=== PATIENT | female | born 1960 | race Caucasian/White ===

== ENCOUNTER 2017-09-27 16:58 | Emergency (ER) | payer BC ==
[~2017-09-27] VITALS: Ht 175.3 cm; Wt 77.1 kg
[~2017-09-27 16:58] MED LIST changes: -CYCL10TA6 PO; -IBUP600T44 PO
[2017-09-27 17:03] VITALS: Ht 175.3 cm; Wt 77.1 kg
[2017-09-27] MEDS ORDERED: DiphenhydrAMINE HCL 50 MG/ML VIAL IV STA (17:19)
[2017-09-27] MEDS ORDERED: KETOROLAC TROMETHAMINE 30 MG/ML VIAL IV STA (17:19)
[2017-09-27] MEDS ORDERED: SODIUM CHLORIDE 0.9% 500ML 500 ML IV STA (17:19)
[2017-09-27] MEDS ORDERED: PROCHLORPERAZINE 5 MG/ML 2 ML VIAL IV STA (17:19)
[2017-09-27] MEDS ORDERED: OPTIRAY 320 IV PRN (17:30)
--- NOTE | 2017-09-27 17:33 | EMERGENCY ROOM VISIT NOTE ---
History Report prepared by Malathi: Philip Ham Under the Supervision of: Dr. Hunter Ruiz D.O. First contact with patient: 17:10 Chief Complaint: HEADACHE Stated Complaint: SEVERE HEADACHE;DOC REFERRED History of Present Illness The patient is a 57 year old female who presents to the Emergency Room with complaints of a worsening headache that began on Monday morning, 4 days prior to arrival. The patient states that her symptoms began with a headache on Monday morning that worsened to intense "throbbing" over the right side of her head and down the right side of her neck. The patient rates the throbbing as a 9/10 in severity. She also notes a "stabbing" pain in her right ear. These symptoms are only alleviated by sleeping. She denies any associated fevers. The patient visited with her PCP on Monday and was given Motrin and Flexeril. This did not alleviate her symptoms so she went back to the PCP today. Today she had a neck x-ray and a carotid ultra sound performed. The Carotid US was clean, but the PCP called her and told her she needed to come to the Emergency Department. She denies any current numbness/weakness, but is nauseous. The patient mentioned that she has had a slight tremor in her upper extremities since she had lumbar back surgery this past April. She adds that this tremor is worse at this time. Pt denies headache, change in vision, fevers, chest pain, shortness of breath, diarrhea, pain with urination, and melena. 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 A total of 10 systems reviewed and were otherwise negative. Past Medical & Surgical No past medical/surgical histories noted. Family History Cancer Diabetes mellitus FH: heart disease Hypertension Seizures Social History Smoking Status: Current Every Day Smoker Marital Status: Occupation Status: employed Current/Historical Medications Scheduled Cyclobenzaprine Hcl (Flexeril), 10 MG PO TID Pantoprazole (Protonix), 40 MG PO BID Paroxetine (Paxil), 30 MG PO DAILY Scheduled PRN Ibuprofen (Motrin), 600 MG PO TID PRN for Pain Allergies Coded Allergies: Lansoprazole (Verified Allergy, Unknown, ?, 08/28/09) Omeprazole (Verified Adverse Reaction, Mild, DIARRHEA, 08/28/09) Physical Exam Vital Signs Date Time Temp Pulse Resp B/P (MAP) Pulse Ox O2 Delivery O2 Flow Rate FiO2 09/27/17 22:20 69 18 111/57 94 09/27/17 21:31 66 18 122/81 92 Room Air 09/27/17 20:31 74 18 117/70 94 Room Air 09/27/17 18:31 75 18 113/70 97 Room Air 09/27/17 17:03 36.7 89 18 115/81 98 Room Air Physical Exam GENERAL: Sitting up in bed, alert, well appearing, well nourished, no distress, non-toxic EYE EXAM: normal conjunctiva. PERRL and EOM's intact. OROPHARYNX: no exudate, no erythema, lips, buccal mucosa, and tongue normal and mucous membranes are moist HEAD: Acute reproducible tenderness just right of the OA joint, tracking down the right paraspinal musculature into the right trapezius. NECK: supple, no nuchal rigidity, no adenopathy, non-tender LUNGS: Clear to auscultation. Normal chest wall mechanics HEART: no murmurs, S1 normal and S2 normal ABDOMEN: abdomen soft, non-tender, normo-active bowel sounds, no masses, no rebound or guarding. BACK: Back is symmetrical on inspection and there is no deformity, no midline tenderness, no CVA tenderness. SKIN: no rashes and no bruising UPPER EXTREMITIES: upper extremities are grossly normal. LOWER EXTREMITIES: No pitting edema. NEURO EXAM: Normal sensorium, cranial nerves II-XII intact, normal speech, no weakness of arms, no weakness of legs. No drift. Finger to nose intact. Gross sensation intact. Medical Decision & Procedures ER Provider Diagnostic Interpretation: Radiology results as stated below per my review and the radiologist's interpretation: ANGIOGRAPHY HEAD COMBO, NECK ANGIO WITH CONTRAST CLINICAL HISTORY: 57 years-old Female presenting with severe right-sided head and neck pain. TECHNIQUE: Multidetector CT angiography of the head and neck was performed before and after the administration of intravenous contrast. 3-D volumetric and/or maximum intensity projection (MIP) images were subsequently reconstructed for review. IV contrast: 95 mL of Optiray 320. A dose lowering technique was used consistent with the principles of ALARA (as low as reasonably achievable). Stenosis measurements were based on NASCET-like criteria. COMPARISON: Noncontrast CT head from 06/04/2009. CT DOSE (mGy.cm): The estimated cumulative dose is 1195.93. FINDINGS: Naphthalene Operator Helper topogram: Unremarkable. NONCONTRAST CT HEAD: Ventricles and sulci normal in size. Brain parenchyma normal in appearance with preserved young-white differentiation. No mass effect or midline shift. No hemorrhage or acute territorial infarct. No extra-axial fluid collection. Paranasal sinuses and mastoid air cells clear. Calvarium intact. CTA HEAD: Anterior circulation demonstrates patent intracranial portions of the internal carotid arteries. Bulbous 3 mm superiorly directed paraclinoid aneurysm noted arising from the right ICA (series 5 image 44). Anterior and middle cerebral arteries patent. Anterior communicating artery patent. Posterior circulation demonstrates codominant vertebral arteries. Posterior inferior cerebellar, anterior inferior cerebellar, superior cerebellar, and posterior cerebral arteries patent. Posterior communicating arteries hypoplastic or aplastic. Dural venous sinuses patent. CTA NECK: Three-vessel aortic arch with patent origins. Common and internal carotid arteries patent. Slight aneurysmal dilatation of the proximal right vertebral artery, which measures 6 mm in diameter versus the normal distal diameter of 2 mm. IMPRESSION: 1. No acute intracranial abnormality. 2. 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 3. No dissection, focal occlusion, or significant stenosis of the cervical arteries. Electronically signed by: Shabbir Jaeger M.D. 09/27/2017 6:32 PM Dictated Date/Time: 09/27/2017 6:24 PM ANGIOGRAPHY HEAD COMBO, NECK ANGIO WITH CONTRAST CLINICAL HISTORY: 57 years-old Female presenting with severe right-sided head and neck pain. TECHNIQUE: Multidetector CT angiography of the head and neck was performed before and after the administration of intravenous contrast. 3-D volumetric and/or maximum intensity projection (MIP) images were subsequently reconstructed for review. IV contrast: 95 mL of Optiray 320. A dose lowering technique was used consistent with the principles of ALARA (as low as reasonably achievable). Stenosis measurements were based on NASCET-like criteria. COMPARISON: Noncontrast CT head from 06/04/2009. CT DOSE (mGy.cm): The estimated cumulative dose is 1195.93. FINDINGS: Naphthalene Operator Helper topogram: Unremarkable. NONCONTRAST CT HEAD: Ventricles and sulci normal in size. Brain parenchyma normal in appearance with preserved young-white differentiation. No mass effect or midline shift. No hemorrhage or acute territorial infarct. No extra-axial fluid collection. Paranasal sinuses and mastoid air cells clear. Calvarium intact. CTA HEAD: Anterior circulation demonstrates patent intracranial portions of the internal carotid arteries. Bulbous 3 mm superiorly directed paraclinoid aneurysm noted arising from the right ICA (series 5 image 44). Anterior and middle cerebral arteries patent. Anterior communicating artery patent. Posterior circulation demonstrates codominant vertebral arteries. Posterior inferior cerebellar, anterior inferior cerebellar, superior cerebellar, and posterior cerebral arteries patent. Posterior communicating arteries hypoplastic or aplastic. Dural venous sinuses patent. CTA NECK: Three-vessel aortic arch with patent origins. Common and internal carotid arteries patent. Slight aneurysmal dilatation of the proximal right vertebral artery, which measures 6 mm in diameter versus the normal distal diameter of 2 mm. IMPRESSION: 1. No acute intracranial abnormality. 2. 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 3. No dissection, focal occlusion, or significant stenosis of the cervical arteries. Electronically signed by: Shabbir Jaeger M.D. 09/27/2017 6:32 PM Dictated Date/Time: 09/27/2017 6:24 PM Laboratory Results 09/27/17 17:30 Red Blood Count 5.14, Mean Corpuscular Volume 95.5, Mean Corpuscular Hemoglobin 33.5, Mean Corpuscular Hemoglobin Concent 35.0, Mean Platelet Volume 10.4, Neutrophils (%) (Auto) 61.3, Lymphocytes (%) (Auto) 30.7, Monocytes (%) (Auto) 5.5, Eosinophils (%) (Auto) 1.4, Basophils (%) (Auto) 0.7, Neutrophils # (Auto) 4.26, Lymphocytes # (Auto) 2.14, Monocytes # (Auto) 0.38, Eosinophils # (Auto) 0.10, Basophils # (Auto) 0.05 09/27/17 17:30 Test 09/27/17 17:30 White Blood Count 6.96 K/uL (4.8-10.8) Red Blood Count 5.14 M/uL (4.2-5.4) Hemoglobin 17.2 g/dL (12.0-16.0) Hematocrit 49.1 % (37-47) Mean Corpuscular Volume 95.5 fL (80-100) Mean Corpuscular Hemoglobin 33.5 pg (25-34) Mean Corpuscular Hemoglobin Concent 35.0 g/dl (32-36) Platelet Count 217 K/uL (130-400) Mean Platelet Volume 10.4 fL (7.4-10.4) Neutrophils (%) (Auto) 61.3 % Lymphocytes (%) (Auto) 30.7 % Monocytes (%) (Auto) 5.5 % Eosinophils (%) (Auto) 1.4 % Basophils (%) (Auto) 0.7 % Neutrophils # (Auto) 4.26 K/uL (1.4-6.5) Lymphocytes # (Auto) 2.14 K/uL (1.2-3.4) Monocytes # (Auto) 0.38 K/uL (0.11-0.59) Eosinophils # (Auto) 0.10 K/uL (0-0.5) Basophils # (Auto) 0.05 K/uL (0-0.2) RDW Standard Deviation 44.2 fL (36.4-46.3) RDW Coefficient of Variation 12.7 % (11.5-14.5) Immature Granulocyte % (Auto) 0.4 % Immature Granulocyte # (Auto) 0.03 K/uL (0.00-0.02) Anion Gap 6.0 mmol/L (3-11) Est Creatinine Clear Calc Drug Dose 65.2 ml/min Estimated GFR () 71.7 Estimated GFR (Non- 61.9 BUN/Creatinine Ratio 11.8 (10-20) Calcium Level 9.8 mg/dl (8.5-10.1) Laboratory results per my review. Medications Administered Medications (Trade) Dose Ordered Sig/Sarkis Route Start Time Stop Time Status Last Admin Dose Admin Diphenhydramine HCl (Benadryl Inj) 50 mg NOW STAT IV 09/27/17 17:19 09/27/17 17:23 DC 09/27/17 17:33 50 MG Prochlorperazine Edisylate (Compazine Inj) 10 mg NOW STAT IV 09/27/17 17:19 09/27/17 17:23 DC 09/27/17 17:34 10 MG Ketorolac Tromethamine (Toradol Inj) 30 mg NOW STAT IV 09/27/17 17:19 09/27/17 17:23 DC 09/27/17 17:33 30 MG Sodium Chloride 500 ml @ 999 mls/hr Q31M STAT IV 09/27/17 17:19 09/27/17 17:49 DC 09/27/17 17:33 999 MLS/HR ED Course ED COURSE: Vital signs were reviewed and showed normal vitals. The patients medical record was reviewed The above diagnostic studies were performed and reviewed. ED treatments and interventions as stated above. 1713: The patient was evaluated in room A3. A complete history and physical examination was performed. 1718: Ordered Sodium Chloride 500 mL @ 999 IV, Toradol 30 mg IV, Compazine 10 mg IV, Benadryl 50 mg IV. 1956: I discussed the case with Dr. Morillo - Surgery. He recommends discussing with neurosurgery. 1999: I checked on the patient at this time. I informed her of the findings of the case at this time. 2021: I discussed the case with Elizabeth - Neurosurgery at [facility]. He will accept the patient for transfer. 2034: [facility] has called back. They are not sure if they have a bed at this time. 2099: [facility] has called back and they have an open bed for the patient. She will be transferred by [facility] and will be leaving within the hour. 2103: Upon reevaluation, the patient is resting in bed.I discussed my findings with the patient and she understands and agrees with the treatment plan. Based on the patients age, coexisting illnesses, exam and lab findings the decision to treat as an inpatient was made. The patient remained stable while under my care. The patient will be evaluated for further management. Appeared well at time of transfer. Medical Decision Differential Diagnosis includes but is not limited to headache, tension headache , cluster headache, migraine, subarachnoid hemorrhage, meningitis, mass, central venous thrombus, concussion, trauma and epidural/subdural hemorrhage. Patient is a 57-year-old female referred in by primary care doctor for a right- sided headache which is been present since Monday morning. CBC and BMP were unremarkable. IV was established. She was given IV Toradol, Benadryl and Compazine. She is completely neurologically intact. CTA of the head and neck were performed and shows a right internal carotid artery aneurysm in combination with a right vertebral artery aneurysm. Discuss with neurosurgery from [facility]. They recommended transferring for an angioma. Updated patient at bedside. There is no blood seen on CT. Patient was accepted in transfer to [facility] for further workup. Medication Reconcilliation Current Medication List: was personally reviewed by me Blood Pressure Screening Patient's blood pressure: Normal blood pressure Consults Time Called: 1951 Consulting Physician: Dr. Morillo - Surgery Returned Call: 1956 I discussed the case with Dr. Morillo - Ty. He recommends discussing with neurosurgery. Additional Consults: Time Called: 2014 Consulted Physician: Dr. Johnson - Neurosurgery at [facility] Returned Call: 2021 Additional Comments: I discussed the case with Dr. Johnson - Neurosurgery at [facility]. He will accept the patient for transfer. 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 I confirm that the note above accurately reflects all work, treatment, procedures, and medical decision making performed by me. Departure Information Dispostion Transfer Acute Care Facility Referrals Rolo Schmidt MD (PCP) Patient Instructions My [facility] Problem Qualifiers
[2017-09-27 17:44] LABS: BASO % 0.7 %; BASO ABS # 0.05 K/uL (0-0.2); EOS % 1.4 %; HEMATOCRIT 49.1 % (37-47); HEMOGLOBIN 17.2 g/dL (12.0-16.0); IG# 0.03 K/uL (0.00-0.02); LYMPH % 30.7 %; LYMPH ABS # 2.14 K/uL (1.2-3.4); MEAN CELL VOLUME 95.5 fL (80-100); MEAN CORPUSCULAR HEMOGLOBIN 33.5 pg (25-34); MEAN PLATELET VOLUME 10.4 fL (7.4-10.4); MONO % 5.5 %; MONO ABS # 0.38 K/uL (0.11-0.59); NEUT % 61.3 %; NEUT ABS # 4.26 K/uL (1.4-6.5); PLATELET COUNT 217 K/uL (130-400); RED CELL DISTRIBUTION WIDTH CV 12.7 % (11.5-14.5); RED CELL DISTRIBUTION WIDTH SD 44.2 fL (36.4-46.3); WHITE BLOOD COUNT 6.96 K/uL (4.8-10.8)
[2017-09-27] MEDS ORDERED: IBUP600T44 PO (17:56)
[2017-09-27] MEDS ORDERED: CYCL10TA6 PO (17:56)
[2017-09-27 18:01] LABS: CALCIUM 9.8 mg/dl (8.5-10.1); CREATININE 1.02 mg/dl (0.60-1.20); POTASSIUM 3.2 mmol/L (3.5-5.1)
--- NOTE | 2017-09-27 18:33 | DIAGNOSTIC IMAGING REPORT ---
ANGIOGRAPHY HEAD COMBO, NECK ANGIO WITH CONTRAST CLINICAL HISTORY: 57 years-old Female presenting with severe right-sided head and neck pain. TECHNIQUE: Multidetector CT angiography of the head and neck was performed before and after the administration of intravenous contrast. 3-D volumetric and/or maximum intensity projection (MIP) images were subsequently reconstructed for review. IV contrast: 95 mL of Optiray 320. A dose lowering technique was used consistent with the principles of ALARA (as low as reasonably achievable). Stenosis measurements were based on NASCET-like criteria. COMPARISON: Noncontrast CT head from 06/04/2009. CT DOSE (mGy.cm): The estimated cumulative dose is 1195.93. FINDINGS: Cook Helper Vegetable topogram: Unremarkable. NONCONTRAST CT HEAD: Ventricles and sulci normal in size. Brain parenchyma normal in appearance with preserved young-white differentiation. No mass effect or midline shift. No hemorrhage or acute territorial infarct. No extra-axial fluid collection. Paranasal sinuses and mastoid air cells clear. Calvarium intact. CTA HEAD: Anterior circulation demonstrates patent intracranial portions of the internal carotid arteries. Bulbous 3 mm superiorly directed paraclinoid aneurysm noted arising from the right ICA (series 5 image 44). Anterior and middle cerebral arteries patent. Anterior communicating artery patent. Posterior circulation demonstrates codominant vertebral arteries. Posterior inferior cerebellar, anterior inferior cerebellar, superior cerebellar, and posterior cerebral arteries patent. Posterior communicating arteries hypoplastic or aplastic. Dural venous sinuses patent. CTA NECK: Three-vessel aortic arch with patent origins. Common and internal carotid arteries patent. Slight aneurysmal dilatation of the proximal right vertebral artery, which measures 6 mm in diameter versus the normal distal diameter of 2 mm. IMPRESSION: 1. No acute intracranial abnormality. 2. 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 3. No dissection, focal occlusion, or significant stenosis of the cervical arteries. Electronically signed by: Shabbir Jaeger M.D. 09/27/2017 6:32 PM Dictated Date/Time: 09/27/2017 6:24 PM
[2017-09-27 22:20] VITALS: BP 111/57; PULSE 69; O2SAT 94
== END 2017-09-27 22:20 | disposition short-term general hospital (02) ==
LOC: C.EDB 17:00 → C.EDA 22:20
DX: I72.0 Aneurysm of carotid artery (principal); I72.6 Aneurysm of vertebral artery; F17.200 Nicotine dependence, unspecified, uncomplicated; Z88.8 Allergy status to other drugs, medicaments and biological substances; Z80.9 Family history of malignant neoplasm, unspecified; Z83.3 Family history of diabetes mellitus; Z82.49 Family history of ischemic heart disease and other diseases of the circulatory system; Z82.0 Family history of epilepsy and other diseases of the nervous system

== ENCOUNTER → 2017-09-27 | Outpatient (CLI) | payer BC ==
[~2017-09-27] MED LIST: CYCL10TA6 PO; IBUP600T44 PO; PANT40TA PO; PARO1TAB27 PO
--- NOTE | 2017-09-27 15:45 | DIAGNOSTIC IMAGING REPORT ---
CAROTID DOPPLER NECK ART CLINICAL HISTORY: 57 years-old Female with NECK PAIN. Acute neck pain COMPARISON: None available TECHNIQUE: Multiple real time sonographic images of the carotid bifurcations were obtained assessing young scale, color Doppler and spectral wave form appearance FINDINGS: RIGHT INTERNAL CAROTID: The peak systolic velocity measured 61 cm/sec. The end diastolic velocity measured 31 cm/sec. The ICA to CCA ratio measured 1.3 which correlates with a stenosis of 0-50%. No significant atherosclerotic plaquing. LEFT INTERNAL CAROTID: The peak systolic velocity measured 103 cm/sec. The end diastolic velocity measured 40 cm/sec. The ICA to CCA ratio measured 1.7 which correlates with a stenosis of 0-50%. No significant atherosclerotic plaquing. There is normal antegrade vertebral flow bilaterally. Blood pressure of the right upper extremity reported at 144/88. Blood pressure of the left upper extremity reported at 126/77. IMPRESSION: 1. No hemodynamically significant stenosis or significant atherosclerotic plaquing. 2. Normal antegrade vertebral flow bilaterally. The above report was generated using voice recognition software. It may contain grammatical, syntax or spelling errors. Electronically signed by: Thiago Draper M.D. 09/27/2017 3:44 PM Dictated Date/Time: 09/27/2017 3:42 PM
== END | disposition home or self-care (01) ==
LOC: C.ULTRBC 14:28
PROVIDERS: ATTEND Internal Medicine
DX: M54.2 Cervicalgia (principal)